=== PATIENT | male | born 1955 | race Caucasian/White ===

== ENCOUNTER 2016-08-30 13:54 | Inpatient (IN) ==
[2016-08-30] MEDS ORDERED: *HR* FentaNYL (PF) 100 MCG/2 ML VIAL IVP ONE (14:05)
[2016-08-30] MEDS ORDERED: Ondansetron ODT 4 MG TAB.RAPDIS SL ONE (14:05)
[2016-08-30] MEDS ORDERED: Ondansetron 4 MG/2 ML VIAL IVP ONE (14:08)
[2016-08-30] MEDS ORDERED: Ondansetron 4 MG/2 ML VIAL ONE (14:09)
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
[2016-08-30] MEDS ORDERED: *HR* HYDROmorphone 2 MG/ML SYRINGE IVP ONE (14:41)
[2016-08-30] MEDS ORDERED: *HR* HYDROmorphone (PF) 1 MG/ML SYRINGE IVP ONE ×4 (15:10→19:16)
--- NOTE | 2016-08-30 15:50 | Emergency Department Note ---
START Narrative - START START: I examined this patient and my medical decision-making was reviewed with the [employer]OKE BEATER MACHINE OPERATOR/PA/Advanced Practice Nurse/Resident Physician. I agree with the documented findings, disposition and treatment plan as described except to the extent set forth below.
[2016-08-30] MEDS ORDERED: *HR* HYDROmorphone 20 MG/20 ML PCA IVC PRN (19:17)
[2016-08-30] MEDS ORDERED: Naloxone 0.4 MG/ML INJ IVP PRN (19:18)
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
[2016-08-30] MEDS ORDERED: 0.9 % Sodium Chloride 1,000 ML ONE (19:53)
[2016-08-30] MEDS ORDERED: 0.9 % Sodium Chloride 1,000 ML IVC SCH (20:00)
[2016-08-30 20:01] LABS: Basophils % 0.5 %; Eosinophils # 0.1 K/mcL (0.0-0.6); Eosinophils % 2.2 %; Hematocrit 45.2 % (37.5-50.1); Hemoglobin 14.7 g/dL (12.9-16.9); Immature Granulocytes % 0.5 % (0-4); Immature Platelets 3.6 % (1.1-6.1); Lymphocytes # 0.8 K/mcL (0.6-4.6); Lymphocytes % 13.7 %; Mean Corpuscular HGB Conc 32.5 g/dL (31.6-35.5); Mean Corpuscular Hemoglobin 28.7 pg (28.0-33.3); Mean Corpuscular Volume 88.1 fL (83.0-100.0); Mean Platelet Volume 9.8 fL (9.4-12.4); Monocytes # 0.4 K/mcL (0.0-1.3); Monocytes % 7.4 %; Neutrophils # 4.5 K/mcL (1.6-8.9); Platelet Count 182 K/mcL (140-400); Red Blood Count 5.13 M/mcL (4.19-5.50); Red Cell Distribution Width 13.9 % (11.5-14.5); Segmented Neutrophils % 75.7 %
[2016-08-30 20:09] LABS: INR 1.4; Prothrombin Time 15.3 Seconds (9.4-12.1)
[2016-08-30 20:15] LABS: Alanine Aminotransferase 16 Units/L (0-55); Albumin 3.3 g/dL (3.5-5.0); Albumin/Globulin Ratio 1.1 (1.1-2.2); Alkaline Phosphatase 73 Units/L (38-126); Aspartate Amino Transferase 30 Units/L (5-34); BUN/Creatinine Ratio 12 (6-26); Bilirubin,Total 1.2 mg/dL (0.2-1.2); Blood Urea Nitrogen 14 mg/dL (8-26); Calcium 8.8 mg/dL (8.6-10.8); Carbon Dioxide 24 mEq/L (19-29); Chloride 102 mEq/L (98-109); Creatine Kinase 245 Units/L (30-200); Globulin 3.1 g/dL (2.4-3.5); Glucose 93 mg/dL (70-99); Magnesium 2.1 mg/dL (1.6-2.6); Osmolality,Calculated 284 (280-300); Potassium 4.4 mEq/L (3.5-4.5); Sodium 137 mEq/L (136-145); Total Protein 6.4 g/dL (6.0-8.3); eGFR For African Americans > 60 (> 60); eGFR For Non-African Americans > 60 (> 60)
[2016-08-30] MEDS ORDERED: Albuterol 2.5 MG/3 ML NEBULIZER IH PRN (22:26)
[2016-08-30] MEDS ORDERED: Acetaminophen 325 MG TABLET PO PRN (22:26)
[2016-08-30] MEDS ORDERED: DEPO TESTOSTERONE IM SCH (22:30)
[2016-08-30] MEDS: Budesonide/Formoterol 160/4.5 MDI IH SCH (23:13)
[2016-08-31] MEDS: diazePAM 2 MG TABLET PO SCH ×3 (00:02→21:31)
[2016-08-31] MEDS: traZODone 50 MG TABLET PO SCH ×2 (00:03→21:32)
[2016-08-31] MEDS: Baclofen 10 MG TABLET PO SCH ×4 (00:03→21:32)
[2016-08-31] MEDS: Melatonin 3 MG TABLET PO SCH ×2 (00:03→21:32)
[2016-08-31] MEDS: Gabapentin 400 MG CAPSULE PO SCH ×4 (00:03→21:31)
[2016-08-31] MEDS: Folic Acid 1 MG TABLET PO SCH (07:44)
[2016-08-31] MEDS: (Dexlansoprazole [Dexilant] 60 MG) PO SCH (07:54)
--- NOTE | 2016-08-31 10:53 | Internal Med Progress Note ---
Date of Encounter: 08/31/16 Time of Encounter: 10:50 - Assessment and plan (1) T6 vertebral fracture Current Visit: Yes Status: Acute Assessment and plan: CT scan of the thorax shows an acute to subacute compression fracture of T6 with approximately 40% height loss, mild compression deformity of C7 progressed , mild chronic height loss of T9, scoliosis, diffuse osteopenia, loculated effusion on the left lung base Dr. Brunson was called by the ER physician, we will remind Dr. Brunson the patient is here to be evaluated Continue Dilaudid SUPPLY ANALYST for now The patient might request to be transferred to [facility] if a surgical procedure might be indicated Qualifiers: Encounter type: initial encounter Fracture type: closed Fracture morphology: wedge compression Qualified Code(s): S22.050A - Wedge compression fracture of T5-T6 vertebra, initial encounter for closed fracture (2) DVT (deep venous thrombosis) Current Visit: Yes Status: Chronic Assessment and plan: Failed Xarelto in the past Currently on Pradaxa hold Pradaxa if a surgical intervention is indicated Qualifiers: DVT location: lower extremity Affected thrombotic vein of extremity: unspecified lower extremity distal vein Laterality: right Qualified Code(s) : I82.4Z1 - Acute embolism and thrombosis of unspecified deep veins of right distal lower extremity (3) Accelerated hypertension Current Visit: No Status: Acute Assessment and plan: Stable after controlling better the pain Continue lisinopril (4) Compression fracture Current Visit: Yes Status: Acute (5) Chronic pain Current Visit: Yes Status: Chronic Assessment and plan: Uses a Demerol pump Qualifiers: Chronic pain type: chronic pain syndrome Qualified Code(s): G89.4 - Chronic pain syndrome (6) Pleural effusion Current Visit: Yes Status: Acute Assessment and plan: Left pleural effusion on chest x-ray Consider Lasix - Subjective Interval history: The patient says that they pain is taking over his entire back with no specific tender point, 7 out of 10 in intensity while using a Demerol pump and Dilaudid SUPPLY ANALYST, denies any chest pain, shortness of breath, no incontinence, no numbness anywhere, no fevers or chills, no cough, no dysuria - Constitutional Vitals: Temp Pulse Resp BP Pulse Ox 97.9 F 54 16 109/70 99 08/31/16 07:58 08/31/16 07:58 08/31/16 07:58 08/31/16 07:58 08/31/16 07:58 General appearance: Present: A&O X 3 - Head Head exam: Present: atraumatic, normocephalic - Eye Eye exam: Present: PERRL, conjuntiva pink, sclera anicteric Pupils: Present: PERRL - Neck Neck exam general surgery: Present: supple, trachea midline. Absent: lymphadenopathy - Respiratory Respiratory exam: Present: decreased breath sounds, CTAB. Absent: accessory muscle use, rales, rhonchi, wheezes - Cardiovascular Cardiovascular exam: Present: RRR, +S1, +S2. Absent: diastolic murmur, gallop, rubs, systolic murmur - GI/Abdominal GI/Abdominal exam: Present: normal bowel sounds, soft, no peritoneal signs. Absent: distended, tenderness - Extremities Exam Extremities exam: Present: warm, radial pulses palpable and symetrical. Absent : calf tenderness, cyanotic, pedal edema - Neurological Exam Neurological exam: Present: CN II-XII intact, oriented X3, no focal deficits. Absent: pronater drift, facial droop, speech deficit Additional comments: Unable to turn around due to excruciating back pain - Skin Skin exam: Present: dry, intact Internal Medicine: Result - Labs CBC & Chem 7: 08/30/16 19:53 08/30/16 19:53 Labs: Short CBC 08/30/16 Range/Units 19:53 WBC 5.9 (4.3-11.1) K/mcL Hgb 14.7 (12.9-16.9) g/dL Hct 45.2 (37.5-50.1) % Plt Count 182 (140-400) K/mcL Neutrophils # 4.5 (1.6-8.9) K/mcL BMP 08/30/16 19:53 Sodium 137 Potassium 4.4 Chloride 102 Carbon Dioxide 24 BUN 14 Creatinine 1.13 Glucose 93 Calcium 8.8 Cardiac Enzymes 08/30/16 Range/Units 19:53 Troponin I 0.01 (0-0.03) ng/mL Liver Function 08/30/16 Range/Units 19:53 Total Bilirubin 1.2 (0.2-1.2) mg/dL AST 30 (5-34) Units/L ALT 16 (0-55) Units/L Alkaline Phosphatase 73 (38-126) Units/L Albumin 3.3 L (3.5-5.0) g/dL - ABG Interpretation ABG results: PT/INR, D-dimer PT 15.3 Seconds (9.4-12.1) H 08/30/16 19:53 - VTE Reasons for not Prescribing Prophylaxis: Not indicated-Anticoagulated or INR therapeutic Consult Discharge Plan - Plan Referrals: Whitney Francisco CNP [Primary Care Provider] -
[2016-08-31] MEDS: Budesonide/Formoterol 160/4.5 MDI IH SCH ×2 (10:59→20:16)
--- NOTE | 2016-08-31 13:36 | Electrocardiograph Report ---
[place] [id number] Test Date: 2016-08-30 Pat Name: Carlos Scales Department: 102 Room: 3A42 Gender: M Staff Therapist: MINDA : [id number] Requested By: Willi Ortega Order Number: [id number] Reading MD: Devon Lamb MD Measurements Intervals [place] Rate: 76 P: 63 DC: 174 QRS: 22 QRSD: 94 T: 43 QT: 351 QTc: 381 Interpretive Statements SINUS RHYTHM BASELINE ARTIFACT Electronically Signed On 08-31-2016 13:34:50 EDT by Devon Lamb MD
[2016-08-31] MEDS ORDERED: ceFAZolin 1,000 MG in D5% in Water (Mini-Bag+) 100 ML IVPB ONE (18:49)
--- NOTE | 2016-09-01 07:29 | Spinal Consult Note ---
Date of Encounter: 08/31/16 Time of Encounter: 16:05 Assessment and Plan (1) T6 vertebral fracture Current Visit: Yes Status: Acute He is afebrile VSS. He is in significant pain with movement of thetrunk. He is neurovascularly intact with regard to his bilateral upper and lower extremities. He has tenderness to palpation over the mid thoracic region. He has no clonus. His hips move symmetrically. MRI of the thoracic spine reveals an acute T6 compression fracture with 40% loss of height and mild amnt of retropulsion. Impression: 1) Acute T6 compression Fracture 2) Osteopenia Plan: Due to his intractable pain I find i reasonable to consider a Kyphoplasty of T6. Risks and benefits were discussed and the patient would like to proceed. If the patient is cleared by the hospatalist service we will add on for . Qualifiers: Encounter type: initial encounter Fracture type: closed Fracture morphology: wedge compression Qualified Code(s): S22.050A - Wedge compression fracture of T5-T6 vertebra, initial encounter for closed fracture History of Present Illness Chief complaint: back pain HPI: Mr. Scales is a 61 year old male with a history of previous lumbar surgery and an implantable pain pump whi complains of severe thracic back pain after a fall from height. He was seen in ER where CT scan reveals thoracic compression fracture. He was admittted for pain control and definitive management. He denies and bowel bladder symptoms or focal weakness, but complainsof severe back pain with movement. Past Med Surg Social Fam HX - Past Medical History Medical history: DVT, hyperlipidemia, hypertension, kidney stones Psychiatric history: anxiety, depression - Past Surgical History Surgical History: appendectomy, cholecystectomy, other - Social History Smoking Status: Never smoker Smokeless Tobacco Status: No Alcohol use: none Drug use: none - Family History Mother Living Status: Age at : 62 Cause of : Kidney Failure Hx Family Cardiac Disorders: No Hx Family Respiratory Disorders: No Hx Family Cancer: No Hx Family GI Disorders: No Hx Family Genitourinary Disorders: Yes (Kidney stones) Hx Family Endocrine Disorder: No Hx Family Musculoskeletal Disorders: No Hx Family Neuromuscular Disorders: No Hx Family Neurologic Disorders: No Hx Family HEENT Disorders: No Hx Family Autoimmune Disorders: No Hx Family Reproductive Disorders: No Hx Family Psychosocial Disorders: No Hx Family Medical Disorders: No Medications and Allergies Albuterol Sulfate [Albuterol Inhaler] 2 puff IH Q4HR PRN 10/24/14 [History] Baclofen [Lioresal] 10 mg PO TID 10/24/14 [History] Budesonide/Formoterol 160/4.5 [Symbicort 160/4.5] 1 puff IH BIDR 10/24/14 [ History] Citalopram [CeleXA] 40 mg PO QAM 10/24/14 [History] Diazepam [Valium] 2 mg PO BID 10/24/14 [History] Polyethylene Glycol 3350 [MiraLAX] 17 gm PO DAILY PRN 10/24/14 [History] TraZODone 150 mg PO HS 10/24/14 [History] Acetaminophen [Tylenol] 650 mg PO Q6HR PRN #10 tablet 07/05/15 [Rx] Dabigatran [Pradaxa] 150 mg PO BID #60 capsule 07/21/16 [Rx] Dexlansoprazole [Dexilant] 60 mg PO DAILY 07/21/16 [History] Furosemide [Lasix] 20 mg PO DAILY 07/21/16 [History] Gabapentin [Neurontin] 400 mg PO TID 07/21/16 [History] Loratadine [Claritin] 10 mg PO DAILY PRN 07/21/16 [History] Melatonin 3 mg PO HS 07/21/16 [History] Promethazine HCl 25 mg PO Q6H PRN 07/21/16 [History] Testosterone Cypionate [Depo-Testosterone] 200 mg IM Q2W 07/21/16 [History] Folic Acid 1 mg PO DAILY #30 tablet 08/18/16 [Rx] Albuterol Neb [Proventil Neb] 2.5 mg IH Q4-6H PRN 08/30/16 [History] Lisinopril [Zestril] 5 mg PO DAILY 08/30/16 [History] Pain Pump 0 mg .ROUTE AD 08/30/16 [History] Allergies No Known Allergies Allergy (Verified 07/21/16 14:34) Results - Labs Result Diagrams: 08/30/16 19:53 08/30/16 19:53 Labs: Abnormal lab results PT 15.3 Seconds (9.4-12.1) H 08/30/16 19:53 Creatine Kinase 245 Units/L (30-200) H 08/30/16 19:53 Albumin 3.3 g/dL (3.5-5.0) L 08/30/16 19:53 All other labs normal. Consult Discharge Plan - Plan Referrals: Whitney Francisco CNP [Primary Care Provider] -
[2016-09-01] MEDS: Folic Acid 1 MG TABLET PO SCH (08:16)
[2016-09-01] MEDS: Gabapentin 400 MG CAPSULE PO SCH ×2 (08:16→20:44)
[2016-09-01] MEDS: Baclofen 10 MG TABLET PO SCH ×2 (08:17→20:45)
[2016-09-01] MEDS: diazePAM 2 MG TABLET PO SCH ×2 (08:21→20:44)
[2016-09-01] MEDS: (Dexlansoprazole [Dexilant] 60 MG) PO SCH (08:22)
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
[2016-09-01] MEDS: Budesonide/Formoterol 160/4.5 MDI IH SCH ×2 (10:50→21:05)
[2016-09-01] MEDS ORDERED: ceFAZolin 1,000 MG in D5% in Water (Mini-Bag+) 100 ML IVPB ONE (11:00)
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
[2016-09-01] MEDS ORDERED: Ringers Solution, Lactated 1,000 ML IVC SCH ×2 (12:45→16:14)
[2016-09-01] MEDS ORDERED: Lidocaine -MPF 2% 2 ML VIAL ONE (12:46)
[2016-09-01] MEDS ORDERED: *HR* Midazolam HCl 2 MG/2 ML VIAL ONE (12:46)
[2016-09-01] MEDS ORDERED: *HR* Propofol 200 MG/20 ML VIAL IVP ONE (12:46)
[2016-09-01] MEDS ORDERED: Ondansetron 4 MG/2 ML VIAL ONE (12:46)
[2016-09-01] MEDS ORDERED: *HR* Remifentanil 2 MG VIAL IVP ONE (12:49)
[2016-09-01] MEDS ORDERED: Lidocaine TOPICAL Soln 50 ML BOTTLE ONE (12:53)
[2016-09-01] MEDS ORDERED: *HR* FentaNYL (PF) 100 MCG/2 ML VIAL ONE (13:01)
--- NOTE | 2016-09-01 13:41 | Anesthesia Procedures ---
Date of Encounter: 09/01/16 Time of Encounter: 13:41 Procedures: Anesthesia - Intubation Time out performed: Yes (Awake FOI) Sedative: other (remifentanyl) Assist device used: fiber optic device ET Tube Size: 6.5 ET tube uncuffed: No Tube secured depth (cm): 22 Tube secured location: lips Tube Placement Confirmation: visualized tube passing through cords (visualized distal ETT with bronchoscope) Patient tolerated procedure: well Intubation complications: none Additional comments: pt supine, anesthetised AW with de Vilbiss atomizer 3 x each nare, 3 x base of tongue. visualized epiglottis, arytenoids, cords, epidural cath past cords, LA 4%lidocaine. pt iftikhar well minimal cough. ETT passed over bronchoscope with no resistance. Posn verified with bronchoscope and ETCO2. pt anesthetised with propofol IV (see or note)
[2016-09-01] MEDS ORDERED: Albuterol 2.5 MG/3 ML NEBULIZER IH PRN (14:16)
[2016-09-01] MEDS ORDERED: *HR* Promethazine 25 MG/ML VIAL IVP PRN ×2 (14:16→16:14)
--- NOTE | 2016-09-01 14:56 | Orthopedic Operative Note ---
Date of procedure: 09/01/16 Pre-op diagnosis: Vertebral compression fracture, osteopenia Post-op diagnosis: same Operation/Findings: Kyphoplasty T6: The patient was brought to the operative theater where successful endotracheal anesthesia was performed. The patient was given antibiotics prior to the start of the procedure. Compression boots and stockings were used for deep vein thrombosis prophylaxis. Patient was then turned prone on a well-padded operating table. The back was prepped and draped in the usual sterile fashion. 2 C-arm fluorographic devices were brought into position such that simultaneous AP and lateral views centered over the involved T6 vertebral body could be performed. A stab incision was made over the superior-lateral aspect of the right T6 pedicle. We introduced a Jamshidi needle into the T6 vertebral body via a transpedicular route. We took biplanar images of the T6 vertebral body using fluorography. The needle was found to be in appropriate position and within the confines of the T6 vertebral body. We then introduced a biopsy trocar and attempted to obtain a biopsy specimen of the vertebral body. Only bloody material was retrieved so we did not send a biopsy. We then removed the biopsy trocar and introduced a Kyphon balloon. The balloon was insufflated to approximately 4 mL volume and subsequently deflated. The balloon was seen to expand within the confines of the T6 vertebral body on biplanar fluorographic views. The balloon was then removed. We then inserted cement trochars and sequentially placed bone cement within the confines of the T6 vertebral body. We took intermittent fluorographic views which confirmed satisfactory placement of the cement. After completion of the cementation process, the trocar was removed. We took final AP and lateral fluorographic views. We then closed the stab incision with 2-0 nylon suture. A Band-Aid was placed over the wound. The patient was turned supine on a hospital bed and extubated. All sponge instrument and needle counts were correct at the end of the procedure. The patient tolerated the procedure well without complications. Anesthesia: GETA Surgeon: Eric Brunson Jr Estimated blood loss (cc): 3 Condition: stable Disposition: PACU
[2016-09-01] MEDS: *HR* HYDROmorphone (PF) 1 MG/ML SYRINGE IVP PRN ×3 (15:11→15:52)
--- NOTE | 2016-09-01 16:06 | Anesthesia Evaluation Post Op ---
Date of Encounter: 09/01/16 Time of Encounter: 16:05 - Vital Signs Vital Signs: Vital Signs/O2 Sat, Most Current Temp Pulse Resp BP Pulse Ox 98.6 F 75 16 138/83 99 09/01/16 16:00 09/01/16 16:00 09/01/16 16:00 09/01/16 16:00 09/01/16 16:00 - Lungs Lungs: Clear Ascult./Percussion - Airway Airway: Non-obstructed - Cardiovascular Regular Rate - Mental Status Mental Status: Alert & Oriented, Answers Appropriately - Pain Pain Scale: 8 (has chronic pain) Pain Scale used: Numeric (1 - 10) - Nausea Vomiting Nausea Vomiting: Not Present - Hydration Hydration: NPO, Has not voided - Discharge PostOp Status: Transfer Patient to floor
[2016-09-01] MEDS ORDERED: Naloxone 0.4 MG/ML INJ IVP PRN (16:14)
[2016-09-01] MEDS ORDERED: Patient Taking Own Medication 1 EACH IM SCH (16:14)
[2016-09-01] MEDS ORDERED: Loratadine 10 MG TABLET PO PRN (16:14)
[2016-09-01] MEDS: *HR* Morphine 2 MG/ML SYRINGE IVP PRN ×2 (16:27→20:45)
[2016-09-01] MEDS: ceFAZolin 2,000 MG in D5% in Water 100 ML IVPB SCH ×2 (17:00→23:31)
[2016-09-01] MEDS: *HR* OxyCODONE Immed Rel 5 MG TABLET PO PRN ×2 (17:31→23:34)
[2016-09-01] MEDS ORDERED: traZODone 50 MG TABLET PO SCH (21:00)
[2016-09-01] MEDS ORDERED: Melatonin 3 MG TABLET PO SCH (21:00)
[2016-09-01] MEDS: *HR* Dabigatran 150 MG CAPSULE PO SCH (23:32)
[2016-09-02] MEDS: Gabapentin 400 MG CAPSULE PO SCH (08:27)
[2016-09-02] MEDS: diazePAM 2 MG TABLET PO SCH (08:28)
[2016-09-02] MEDS: *HR* OxyCODONE Immed Rel 5 MG TABLET PO PRN ×2 (08:28→13:07)
[2016-09-02] MEDS: Baclofen 10 MG TABLET PO SCH (08:28)
[2016-09-02] MEDS: *HR* Dabigatran 150 MG CAPSULE PO SCH (08:32)
[2016-09-02] MEDS ORDERED: Folic Acid 1 MG TABLET PO SCH (09:00)
[2016-09-02] MEDS ORDERED: Furosemide 20 MG TABLET PO SCH (09:00)
--- NOTE | 2016-09-02 09:59 | Orthopedics Progress Note ---
Date of Encounter: 09/02/16 Time of Encounter: 09:55 - Assessment and Plan (1) T6 vertebral fracture Current Visit: Yes Status: Resolved Kyphoplasty POD#1 - patient doing well. Appropriate for discharge from orthopedic standpoint. keep incision clean and dry - no submersion. Follow up in office in 2 weeks. Qualifiers: Encounter type: initial encounter Fracture type: closed Fracture morphology: wedge compression Qualified Code(s): S22.050A - Wedge compression fracture of T5-T6 vertebra, initial encounter for closed fracture (2) Osteopenia Current Visit: Yes Status: Chronic Qualifiers: Osteopenia location: unspecified Qualified Code(s): M85.80 - Other specified disorders of bone density and structure, unspecified site Subjective Principal diagnosis: back pain Interval history: POD#1 09/01/16 Kyphoplasty T6 for Vertebral compression fracture, osteopenia. Patient doing very well today. In discussion patient states he is able to rest more easily and able to breathe with significantly less pain compared to prior to kyphoplasty. On exam, patient resting comfortably in chair, Adriana at bedside. Patient returning to baseline. From orthopedic standpoint - okay for discharge. Keep incision clean and dry - no submersion. To follow up in office in 2 weeks. Objective Vital signs: Vital Signs Temp Pulse Resp BP Pulse Ox 09/02/16 08:09 97.9 F 72 14 107/64 94 09/02/16 04:26 97.6 F 53 16 116/54 94 09/02/16 00:31 99.3 F 71 16 96/61 93 09/01/16 21:05 16 92 09/01/16 20:30 92 09/01/16 19:49 98.6 F 80 18 141/85 97 09/01/16 18:31 98.1 F 73 18 133/80 98 09/01/16 17:32 98.6 F 80 18 143/80 97 09/01/16 16:55 98.6 F 73 18 147/80 97 09/01/16 16:25 98.2 F 81 18 150/81 98 09/01/16 16:10 78 16 143/88 98 09/01/16 16:00 98.6 F 75 16 138/83 99 09/01/16 15:50 72 16 145/89 99 09/01/16 15:40 72 16 147/90 99 09/01/16 15:30 98.7 F 67 16 172/97 99 09/01/16 15:20 67 16 172/96 98 09/01/16 15:10 78 16 167/102 100 09/01/16 15:00 99.0 F 81 16 173/101 100 09/01/16 11:40 98.2 F 69 16 156/85 98 09/01/16 10:55 16 97 Intake and Output 09/01/16 09/02/16 09/02/16 23:59 07:59 15:59 Intake Total 220 / 220 0 / 0 0 / 0 Output Total 0 / 0 450 / 450 Balance 220 / 220 0 / 0 -450 / -450 Intake: IV Fluids 100 / 100 Ancef 2,000 MG In 100 / 100 Dextrose 5% 100 ML @ 200 mls/hr IVPB Q8HR [facility] Rx#: [id number] Oral 120 / 120 0 / 0 0 / 0 Output: Urine 0 / 0 450 / 450 Other: Meal Dinner Breakfast Percent of Meal Consumed 100% 25% Weight 69.2 kg Patient Weight 09/02/16 23:59 Weight 69.2 kg - Labs CBC & BMP: 08/30/16 19:53 08/30/16 19:53 Labs: Abnormal lab results PT 15.3 Seconds (9.4-12.1) H 08/30/16 19:53 Creatine Kinase 245 Units/L (30-200) H 08/30/16 19:53 Albumin 3.3 g/dL (3.5-5.0) L 08/30/16 19:53 - VTE Reasons for not Prescribing Prophylaxis: Not indicated-Anticoagulated or INR therapeutic Documentation of Mechanical Device: Intermittent pneumatic compression device Consult Discharge Plan - Plan Additional Instructions: F/up with Spine surgery as scheduled Referrals: Nolan,Whitney Anne GLASS INSTALLER TECHNICIAN [Primary Care Provider] - Yuliana David PAC [Physician Cemetery Manager] - 09/15/16 8:50 am Prescriptions: OxyCODONE Immed Rel [Roxicodone 5 MG] 5 mg PO Q4HR PRN #20 tablet PRN Reason: Pain Chair, Shower [SHOWER CHAIR] 1 each .ROUTE NOW #1 each Commode - Three In One [THREE IN ONE COMMODE] 1 each .ROUTE PRN PRN #1 each PRN Reason: Generalized Weakness Walker W Wheels [WHEELED WALKER] 1 each .ROUTE AD #1 each
[2016-09-02] MEDS: Budesonide/Formoterol 160/4.5 MDI IH SCH (10:13)
[2016-09-02 11:44] VITALS: BP 102/56
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
--- NOTE | 2016-09-02 11:52 | Physician Discharge Referral ---
Home Health/Hosp Referral Info Transfer to: Home Health Attending Provider: Quita Garcia Provider in Charge Post Discharge: PCP - Diagnosis (1) T6 vertebral fracture Priority: Primary Status: Acute (2) DVT (deep venous thrombosis) Priority: Secondary Status: Chronic (3) Chronic pain Priority: Secondary Status: Chronic (4) Pleural effusion Priority: Secondary Status: Chronic - Respiratory Orders Smoking Cessation: Smoking cessation has been advised. For more information, call the [place] Tobacco Quit Line at 5-391-LMWS-NOW. - Diet/Nutrition Diet/Nutrition Orders: Cardiac - Activity Activity Orders: Ambulate - Services Needed Following services are medically necessary services: Nursing, Physical Therapy, Occupational Therapy - Transfer Medications Prescriptions: OxyCODONE Immed Rel [Roxicodone 5 MG] 5 mg PO Q4HR PRN #20 tablet PRN Reason: Pain Chair, Shower [SHOWER CHAIR] 1 each .ROUTE NOW #1 each Commode - Three In One [THREE IN ONE COMMODE] 1 each .ROUTE PRN PRN #1 each PRN Reason: Generalized Weakness Walker W Wheels [WHEELED WALKER] 1 each .ROUTE AD #1 each Home Medications: Albuterol Sulfate [Albuterol Inhaler] 2 puff IH Q4HR PRN 10/24/14 [History] Baclofen [Lioresal] 10 mg PO TID 10/24/14 [History] Budesonide/Formoterol 160/4.5 [Symbicort 160/4.5] 1 puff IH BIDR 10/24/14 [ History] Citalopram [CeleXA] 40 mg PO QAM 10/24/14 [History] Diazepam [Valium] 2 mg PO BID 10/24/14 [History] Polyethylene Glycol 3350 [MiraLAX] 17 gm PO DAILY PRN 10/24/14 [History] TraZODone 150 mg PO HS 10/24/14 [History] Acetaminophen [Tylenol] 650 mg PO Q6HR PRN #10 tablet 07/05/15 [Rx] Dabigatran [Pradaxa] 150 mg PO BID #60 capsule 07/21/16 [Rx] Dexlansoprazole [Dexilant] 60 mg PO DAILY 07/21/16 [History] Furosemide [Lasix] 20 mg PO DAILY 07/21/16 [History] Gabapentin [Neurontin] 400 mg PO TID 07/21/16 [History] Loratadine [Claritin] 10 mg PO DAILY PRN 07/21/16 [History] Melatonin 3 mg PO HS 07/21/16 [History] Promethazine HCl 25 mg PO Q6H PRN 07/21/16 [History] Testosterone Cypionate [Depo-Testosterone] 200 mg IM Q2W 07/21/16 [History] Folic Acid 1 mg PO DAILY #30 tablet 08/18/16 [Rx] Albuterol Neb [Proventil Neb] 2.5 mg IH Q4-6H PRN 08/30/16 [History] Lisinopril [Zestril] 5 mg PO DAILY 08/30/16 [History] Pain Pump 0 mg .ROUTE AD 08/30/16 [History] Chair, Shower [SHOWER CHAIR] 1 each .ROUTE NOW #1 each 09/02/16 [Rx] Commode - Three In One [THREE IN ONE COMMODE] 1 each .ROUTE PRN PRN #1 each [Rx] OxyCODONE Immed Rel [Roxicodone 5 MG] 5 mg PO Q4HR PRN #20 tablet 09/02/16 [Rx] Walker W Wheels [WHEELED WALKER] 1 each .ROUTE AD #1 each 09/02/16 [Rx] Allergies/Adverse Reactions: Allergies No Known Allergies Allergy (Verified 07/21/16 14:34) Certification: Further, I certify that my clinical findings support that this patient is homebound (i.e. absences from home require considerable and taxing effort and are for medical reasons or zoroastrianism services or infrequently or short duration when for other reasons) because: Homebound Reason: Patient requires assistance of a person or device to safely leave home, Post-surgery restriction and or conditions limit ability to leave home, Leaving home requires considerable and taxing effort due to condition Attestation: My signature below is to certify that this patient is under my care and that I, or nurse practitioner, or a physician's corporate law assistant working with me, has a face-to -face encounter with this patient.
== END 2016-09-02 14:56 | disposition home health service (06) | DRG 478 ==
LOC: 3ANU 13:54 → EMEROO 13:54 → 3ANU 18:10 → SUATTDRO 09-01 00:58
PROVIDERS: ADMIT Internal Medicine; ATTEND Internal Medicine

== ENCOUNTER 2018-02-20 13:33 | Observation (INO) ==
[2018-02-20] MEDS ORDERED: Aspirin 81 MG TAB.CHEW PO ONE (13:40)
[2018-02-20 13:55] LABS: Basophils % 0.8 %; Eosinophils # 0.3 K/mcL (0.0-0.6); Eosinophils % 6.7 %; Hematocrit 45.1 % (37.5-50.1); Hemoglobin 14.4 g/dL (12.9-16.9); Immature Granulocytes % 0.6 % (0-4); Lymphocytes # 0.7 K/mcL (0.6-4.6); Lymphocytes % 12.7 %; Mean Corpuscular HGB Conc 31.9 g/dL (31.6-35.5); Mean Corpuscular Hemoglobin 30.4 pg (28.0-33.3); Mean Corpuscular Volume 95.1 fL (83.0-100.0); Mean Platelet Volume 9.2 fL (9.4-12.4); Monocytes # 0.5 K/mcL (0.0-1.3); Neutrophils # 3.6 K/mcL (1.6-8.9); Platelet Count 203 K/mcL (140-400); Red Blood Count 4.74 M/mcL (4.19-5.50); Red Cell Distribution Width 15.1 % (11.5-14.5); Segmented Neutrophils % 70.2 %
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
[2018-02-20 14:16] LABS: BUN/Creatinine Ratio 20 (6-26); Blood Urea Nitrogen 19 mg/dL (8-23); Calcium 9.1 mg/dL (8.6-10.3); Carbon Dioxide 29 mEq/L (23-29); Chloride 104 mEq/L (98-107); Glucose 97 mg/dL (70-105); Osmolality,Calculated 292 (280-300); Potassium 4.5 mEq/L (3.5-5.1); Sodium 140 mEq/L (136-145); Troponin I < 0.03 ng/mL (< 0.04); eGFR For Non-African Americans > 60 (> 60)
[2018-02-20] MEDS ORDERED: *HR* Morphine 2 MG/ML SYRINGE IVP ONE (14:27)
[2018-02-20] MEDS ORDERED: Naloxone 0.4 MG/ML INJ IVP PRN (17:14)
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
[2018-02-20] MEDS ORDERED: Acetaminophen 325 MG TABLET PO PRN (17:29)
[2018-02-20] MEDS: Apixaban 5 MG TABLET PO SCH (21:54)
[2018-02-20] MEDS ORDERED: diazePAM 2 MG TABLET PO ONE (23:02)
[2018-02-20] MEDS ORDERED: traZODone 50 MG TABLET PO ONE (23:02)
[2018-02-20] MEDS ORDERED: tiZANidine 4 MG TABLET PO ONE (23:03)
[2018-02-21 06:08] LABS: Chol/HDL Ratio 2.8 (0-4.9)
[2018-02-21] MEDS: Apixaban 5 MG TABLET PO SCH (08:59)
[2018-02-21] MEDS ORDERED: Aspirin 81 MG TAB.CHEW PO SCH (09:00)
[2018-02-21 11:45] VITALS: BP 141/77
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
--- NOTE | 2018-02-21 15:27 | Electrocardiograph Report ---
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
== END 2018-02-21 15:11 | disposition home or self-care (01) ==
LOC: EMEROOARM 13:33 → 3BNU 13:33
PROVIDERS: ADMIT Internal Medicine; ATTEND Internal Medicine